=== PATIENT | female | born 1980 | race Caucasian/White ===

== ENCOUNTER → 2017-03-14 | Outpatient (CLI) | payer OTHER ==
[~2017-03-14] MED LIST: BCPILLS PO; LEVO75TA5 PO
[2017-03-14 17:05] LABS: URINE APPEARANCE CLEAR (CLEAR); URINE BILIRUBIN NEG (NEG); URINE COLOR YELLOW; URINE NITRITE NEG (NEG); URINE PH 5.5 (4.5-7.5); URINE SPECIFIC GRAVITY 1.023 (1.000-1.030); UROBILINOGEN NEG (NEG)
[2017-03-14 17:06] LABS: MANUAL MICROSCOPIC REQUIRED? NO; REVIEW REQ? NO
== END | disposition home or self-care (01) ==
LOC: C.LABSPEC 16:23
PROVIDERS: ATTEND Obstetrics & Gynecology
DX: N94.89 Other specified conditions associated with female genital organs and menstrual cycle (principal)

== ENCOUNTER → 2017-03-14 | Outpatient (CLI) | payer OTHER | END | disposition home or self-care (01) | LOC: C.PAPS 08:32 | PROVIDERS: ATTEND Obstetrics & Gynecology | DX: Z01.419 Encounter for gynecological examination (general) (routine) without abnormal findings (principal) ==

== ENCOUNTER → 2017-03-15 | Outpatient (CLI) | payer OTHER ==
[2017-03-15 12:16] LABS: BASO % 0.6 %; BASO ABS # 0.02 K/uL (0-0.2); COMPLETE YES; EOS % 2.1 %; HEMATOCRIT 43.9 % (37-47); LYMPH % 40.5 %; LYMPH ABS # 1.38 K/uL (1.2-3.4); MEAN CELL VOLUME 90.9 fL (80-100); MEAN CORPUSCULAR HEMOGLOBIN 29.6 pg (25-34); MEAN CORPUSCULAR HGB CONC 32.6 g/dl (32-36); MEAN PLATELET VOLUME 10.7 fL (7.4-10.4); MONO % 6.5 %; NEUT % 50.3 %; PLATELET COUNT 210 K/uL (130-400); RED BLOOD COUNT 4.83 M/uL (4.2-5.4); WHITE BLOOD COUNT 3.41 K/uL (4.8-10.8)
[2017-03-15 12:43] LABS: PREG INTERNAL NEGATIVE QC NEG CLEAR BACKGROUND; PREG INTERNAL POSITIVE QC POS CONTROL LINE
== END | disposition home or self-care (01) ==
LOC: C.LAB1850 11:24
PROVIDERS: ATTEND Obstetrics & Gynecology
DX: N94.89 Other specified conditions associated with female genital organs and menstrual cycle (principal)

== ENCOUNTER → 2017-05-16 | Outpatient (CLI) | payer OTHER ==
--- NOTE | 2017-05-16 11:38 | DIAGNOSTIC IMAGING REPORT ---
ABDOMINAL ULTRASOUND, RIGHT UPPER QUADRANT HISTORY: Abdominal bloating. COMPARISON: None. FINDINGS: The liver is sonographically normal. There is no biliary ductal dilatation. The common bile duct measures 2 mm in caliber. The pancreas is within normal limits by sonography. There is no right hydronephrosis. A few tiny suspected gallbladder polyps are present. These measure up to 2 mm. There are no shadowing gallstones. No gallbladder wall thickening is present. IMPRESSION: 1. A few tiny gallbladder polyps. 2. No gallstones or biliary ductal dilatation. Electronically signed by: Lester Santiago M.D. 05/16/2017 11:37 AM Dictated Date/Time: 05/16/2017 11:36 AM
== END | disposition home or self-care (01) ==
LOC: C.ULTR 10:56
PROVIDERS: ATTEND Obstetrics & Gynecology
DX: R14.0 Abdominal distension (gaseous) (principal)

== ENCOUNTER 2017-07-20 15:05 | Emergency (ER) | payer OTHER ==
[~2017-07-20] VITALS: Ht 160 cm; Wt 69.0 kg
[2017-07-20 15:16] VITALS: TEMP 36.8; Ht 160 cm; Wt 69.0 kg
--- NOTE | 2017-07-20 15:44 | EMERGENCY ROOM VISIT NOTE ---
History Report prepared by Luma: Leelee Barbour Under the Supervision of: Dr. Alcon Love M.D. First contact with patient: 15:37 Chief Complaint: ABDOMINAL PAIN Stated Complaint: CRAMPING/ABD PAIN Nursing Triage Summary: pt c/o lower bad pain for months getting worse last night History of Present Illness The patient is a 37 year old female who presents to the Emergency Room with complaints of worsening abdominal pain beginning in February. She reports that recently she has been having pain in both her abdomen and back that mirrors syndromes. The patient describes the pain as contractions and that the pain has been more frequent. She reports that she has been hunched over in pain last night and this morning. The patient denies nausea, vomiting, cough, fevers, chills, urinary symptoms, diarrhea, and constipation. The patient reports that laying on her back alleviates the pain. She states that she has been burping a lot and that she has been having indigestion lately. She also reports a 20 pound weight gain, which she states feels like a mass. Per her , the patient has had 2 ultrasounds and labs done. The patient reports still having normal menstrual cycles. Source of History: patient, spouse/significant other Onset: February Position: abdomen Timing: worsening Modifying Factors (Relieving): rest (laying on her back) Associated Symptoms: + back pain, No fevers, No chills, No cough, No nausea , No vomiting, No diarrhea, No urinary symptoms Note: additional symptoms: frequent burping and indigestion, 20 pound weight gain Review of Systems See HPI for pertinent positives and negatives. A total of ten systems were reviewed and were otherwise negative. Past Medical & Surgical Medical Problems: (1) No active medical problems Surgical Problems: (1) Previous section Family History No pertinent family history stated. Social History Smoking Status: Never Smoker Marital Status: Housing Status: lives with significant other Current/Historical Medications No Active Prescriptions or Reported Meds Allergies Coded Allergies: No Known Allergies (Unverified , 07/20/17) Physical Exam Vital Signs Date Time Temp Pulse Resp B/P (MAP) Pulse Ox O2 Delivery O2 Flow Rate FiO2 07/20/17 19:36 66 18 119/75 98 07/20/17 17:50 69 18 111/76 100 Room Air 07/20/17 16:47 64 07/20/17 16:00 66 20 104/65 96 Room Air 07/20/17 15:16 36.8 68 16 139/81 100 Room Air Physical Exam GENERAL: Awake, alert, well-appearing, in no distress HENT: Normocephalic, atraumatic. Oropharynx unremarkable. EYES: Normal conjunctiva. Sclera non-icteric. NECK: Supple. No nuchal rigidity. FROM. No JVD. RESPIRATORY: Clear to auscultation. CARDIAC: Regular rate, normal rhythm. Extremities warm and well perfused. Pulses equal. ABDOMEN: Soft, non-distended. No rebound or guarding. Moderate left and right adnexal tenderness to palpation. Moderate mild suprapubic tenderness to palpation. RECTAL: Deferred.. MUSCULOSKELETAL: Chest examination reveals no tenderness. The back is symmetrical on inspection without obvious abnormality. There is no CVA tenderness to palpation. No joint edema. LOWER EXTREMITIES: Calves are equal size bilaterally and non-tender. No edema. No discoloration. NEURO: Normal sensorium. No sensory or motor deficits noted. SKIN: No rash or jaundice noted. Medical Decision & Procedures ER Provider Diagnostic Interpretation: Radiology results as stated below per my review and radiologist interpretation: ABD/PELVIS IV CONTRAST ONLY CT DOSE: 444.09 mGycm HISTORY: Pain Lower abdominal pain TECHNIQUE: Multiaxial CT images of the abdomen and pelvis were performed following the use of intravenous contrast. A dose lowering technique was utilized adhering to the principles of ALARA. COMPARISON STUDY: None. FINDINGS: Lung bases are clear. Bilateral adrenal calcification considered nonacute. Liver is uniform. Pancreas is unremarkable. Kidneys enhance uniformly. The bowel pattern is nonobstructive. The appendix is normal. There is a 2.2 cm left ovarian cyst. There is a 1.5 cm right ovarian cyst. Uterus is anteflexed. There is trace amount of free fluid in the pelvic cul-de-sac most likely physiologic. Bladder is midline. IMPRESSION: 1. 2.2 cm left ovarian cyst. 2. 1.5 cm right ovarian cyst. 3. The abdomen and pelvis is otherwise negative. 4. Normal appendix. The above report was generated using voice recognition software. It may contain grammatical, syntax or spelling errors. Electronically signed by: Gabriel Simmons M.D. 07/20/2017 6:23 PM Dictated Date/Time: 07/20/2017 6:16 PM Laboratory Results 07/20/17 16:14 Red Blood Count 4.62, Mean Corpuscular Volume 89.2, Mean Corpuscular Hemoglobin 30.1, Mean Corpuscular Hemoglobin Concent 33.7, Mean Platelet Volume 10.9, Neutrophils (%) (Auto) 53.4, Lymphocytes (%) (Auto) 37.1, Monocytes (%) (Auto) 7.6, Eosinophils (%) (Auto) 1.7, Basophils (%) (Auto) 0.2, Neutrophils # (Auto) 2.17, Lymphocytes # (Auto) 1.51, Monocytes # (Auto) 0.31, Eosinophils # (Auto) 0.07, Basophils # (Auto) 0.01 07/20/17 16:14 Test 07/20/17 16:14 07/20/17 16:40 White Blood Count 4.07 K/uL (4.8-10.8) Red Blood Count 4.62 M/uL (4.2-5.4) Hemoglobin 13.9 g/dL (12.0-16.0) Hematocrit 41.2 % (37-47) Mean Corpuscular Volume 89.2 fL (80-100) Mean Corpuscular Hemoglobin 30.1 pg (25-34) Mean Corpuscular Hemoglobin Concent 33.7 g/dl (32-36) Platelet Count 175 K/uL (130-400) Mean Platelet Volume 10.9 fL (7.4-10.4) Neutrophils (%) (Auto) 53.4 % Lymphocytes (%) (Auto) 37.1 % Monocytes (%) (Auto) 7.6 % Eosinophils (%) (Auto) 1.7 % Basophils (%) (Auto) 0.2 % Neutrophils # (Auto) 2.17 K/uL (1.4-6.5) Lymphocytes # (Auto) 1.51 K/uL (1.2-3.4) Monocytes # (Auto) 0.31 K/uL (0.11-0.59) Eosinophils # (Auto) 0.07 K/uL (0-0.5) Basophils # (Auto) 0.01 K/uL (0-0.2) RDW Standard Deviation 39.7 fL (36.4-46.3) RDW Coefficient of Variation 12.4 % (11.5-14.5) Immature Granulocyte % (Auto) 0.0 % Immature Granulocyte # (Auto) 0.00 K/uL (0.00-0.02) Anion Gap 6.0 mmol/L (3-11) Est Creatinine Clear Calc Drug Dose 101.5 ml/min Estimated GFR () 127.4 Estimated GFR (Non- 109.9 BUN/Creatinine Ratio 20.5 (10-20) Calcium Level 8.7 mg/dl (8.5-10.1) Total Bilirubin 0.5 mg/dl (0.2-1) Direct Bilirubin 0.1 mg/dl (0-0.2) Aspartate Amino Transf (AST/SGOT) 23 U/L (15-37) Alanine Aminotransferase (ALT/SGPT) 28 U/L (12-78) Alkaline Phosphatase 61 U/L (45-117) Total Protein 7.0 gm/dl (6.4-8.2) Albumin 4.0 gm/dl (3.4-5.0) Lipase 108 U/L (73-393) Human Chorionic Gonadotropin, Qual NEG (NEG) Urine Color YELLOW Urine Appearance CLOUDY (CLEAR) Urine pH 6.5 (4.5-7.5) Urine Specific Collison 1.024 (1.000-1.030) Urine Protein NEG (NEG) Urine Glucose (UA) NEG (NEG) Urine Ketones NEG (NEG) Urine Occult Blood NEG (NEG) Urine Nitrite NEG (NEG) Urine Bilirubin NEG (NEG) Urine Urobilinogen NEG (NEG) Urine Leukocyte Esterase NEG (NEG) Urine WBC (Auto) 1-5 /hpf (0-5) Urine RBC (Auto) 0-4 /hpf (0-4) Urine Hyaline Casts (Auto) 1-5 /lpf (0-5) Urine Epithelial Cells (Auto) >30 /lpf (0-5) Urine Bacteria (Auto) 1+ (NEG) Urine Test NEG (NEG) Laboratory results reviewed by me Medications Administered Medications (Trade) Dose Ordered Sig/Mary Route Start Time Stop Time Status Last Admin Dose Admin Sodium Chloride 1,000 ml @ 999 mls/hr Q1H1M STAT IV 07/20/17 15:45 07/20/17 16:45 DC 07/20/17 15:45 999 MLS/HR ED Course 1535: The patient was evaluated in room C7. A complete history and physical exam was performed. 1545: Ordered Sodium Chloride 1,000 ml @ 999 mls/hr IV. 1899: I updated the patient on her results. 1919: I reevaluated the patient. Discussed results and discharge instructions: She verbalized understanding and agreement. The patient is ready for discharge. Medical Decision I reviewed the patient's past medical history, medications, and the nursing notes as described above. Differentials include: UTI, renal stone, endometriosis , chronic cystitis, , ectopic , diverticulitis, diverticulosis , appendicitis, ovarian torsion, and malignancy. Patient is a 37-year-old woman who presents emergency department with several months of lower abdominal pain and fullness per history of present illness. Around the patient is afebrile, is unstable, in no acute distress. Exam the patient has mild lower abdominal fullness with tenderness to palpation in bilateral adnexa and mild suprapubic tenderness to palpation. Abdomen unremarkable. Option given to the patient for repeat pelvic ultrasound given symptoms could be consistent with endometriosis. However, given that the patient has had 2 prior pelvic ultrasounds without any identified etiology in the setting of these symptoms prefers CT. CT scan of the abdomen and pelvis demonstrates only bilateral ovarian cysts but otherwise no emergent process. Findings reviewed with patient. I explained how in the setting of a female pelvic pain both pelvic exam and transvaginal ultrasound are indicated. However given she has had prior exams and ultrasounds that were unremarkable deferring these tests would be reasonable. Patient agrees and prefers to follow -up with her multineedle shirrer for further evaluation. Findings and plan for follow- up d/w patient. Patient agreeable and d/c'd per discharge instructions. Medication Reconcilliation Current Medication List: was personally reviewed by me Blood Pressure Screening Patient's blood pressure: Normal blood pressure Impression Primary Impression: Abdominal pain Additional Impression: Ovarian cyst Scribe Attestation The scribe's documentation has been prepared under my direction and personally reviewed by me in its entirety. I confirm that the note above accurately reflects all work, treatment, procedures, and medical decision making performed by me. Departure Information Dispostion Home / Self-Care Prescriptions No Active Prescriptions or Reported Meds Referrals Leonel Hill M.D. (PCP) Forms Call Back Authorization, HOME CARE DOCUMENTATION FORM, IMPORTANT VISIT INFORMATION Patient Instructions ED Cyst Ovarian, My [facility] Additional Instructions Please follow up with your multineedle shirrer in the next 1-3 days for re-evaluation. Your CT scan showed ovarian cysts. Otherwise, your exam, CT scan, and lab results did not show signs of an emergent condition at this time. Return to the emergency department for worsening symptoms as described in the accompanying instructions. ABD/PELVIS IV CONTRAST ONLY CT DOSE: 444.09 mGycm HISTORY: Pain Lower abdominal pain TECHNIQUE: Multiaxial CT images of the abdomen and pelvis were performed following the use of intravenous contrast. A dose lowering technique was utilized adhering to the principles of ALARA. COMPARISON STUDY: None. FINDINGS: Lung bases are clear. Bilateral adrenal calcification considered nonacute. Liver is uniform. Pancreas is unremarkable. Kidneys enhance uniformly. The bowel pattern is nonobstructive. The appendix is normal. There is a 2.2 cm left ovarian cyst. There is a 1.5 cm right ovarian cyst. Uterus is anteflexed. There is trace amount of free fluid in the pelvic cul-de-sac most likely physiologic. Bladder is midline. IMPRESSION: 1. 2.2 cm left ovarian cyst. 2. 1.5 cm right ovarian cyst. 3. The abdomen and pelvis is otherwise negative. 4. Normal appendix. Problem Qualifiers
[2017-07-20] MEDS ORDERED: SODIUM CHLORIDE 0.9% 1000ML 1,000 ML IV STA (15:45)
[2017-07-20] MEDS ORDERED: OPTIRAY 320 IV PRN (16:00)
[2017-07-20 16:26] LABS: BASO % 0.2 %; BASO ABS # 0.01 K/uL (0-0.2); COMPLETE YES; EOS % 1.7 %; HEMATOCRIT 41.2 % (37-47); LYMPH % 37.1 %; LYMPH ABS # 1.51 K/uL (1.2-3.4); MEAN CELL VOLUME 89.2 fL (80-100); MEAN CORPUSCULAR HEMOGLOBIN 30.1 pg (25-34); MEAN CORPUSCULAR HGB CONC 33.7 g/dl (32-36); MEAN PLATELET VOLUME 10.9 fL (7.4-10.4); MONO % 7.6 %; NEUT % 53.4 %; PLATELET COUNT 175 K/uL (130-400); RED BLOOD COUNT 4.62 M/uL (4.2-5.4); WHITE BLOOD COUNT 4.07 K/uL (4.8-10.8)
[2017-07-20 16:49] LABS: BUN/CREATININE RATIO 20.5 (10-20); CALCIUM 8.7 mg/dl (8.5-10.1); CREATININE 0.7 mg/dl (0.60-1.20); POTASSIUM 3.7 mmol/L (3.5-5.1)
[2017-07-20 16:50] LABS: PREG INTERNAL NEGATIVE QC NEG CLEAR BACKGROUND; PREG INTERNAL POSITIVE QC POS CONTROL LINE
[2017-07-20 17:14] LABS: URINE APPEARANCE CLOUDY (CLEAR); URINE BILIRUBIN NEG (NEG); URINE COLOR YELLOW; URINE EPITHELIAL CELL AUTO >30 /lpf (0-5); URINE NITRITE NEG (NEG); URINE PH 6.5 (4.5-7.5); URINE SPECIFIC GRAVITY 1.024 (1.000-1.030); UROBILINOGEN NEG (NEG)
[2017-07-20 17:16] LABS: MANUAL MICROSCOPIC REQUIRED? NO; REVIEW REQ? NO
--- NOTE | 2017-07-20 18:24 | DIAGNOSTIC IMAGING REPORT ---
ABD/PELVIS IV CONTRAST ONLY CT DOSE: 444.09 mGycm HISTORY: Pain Lower abdominal pain TECHNIQUE: Multiaxial CT images of the abdomen and pelvis were performed following the use of intravenous contrast. A dose lowering technique was utilized adhering to the principles of ALARA. COMPARISON STUDY: None. FINDINGS: Lung bases are clear. Bilateral adrenal calcification considered nonacute. Liver is uniform. Pancreas is unremarkable. Kidneys enhance uniformly. The bowel pattern is nonobstructive. The appendix is normal. There is a 2.2 cm left ovarian cyst. There is a 1.5 cm right ovarian cyst. Uterus is anteflexed. There is trace amount of free fluid in the pelvic cul-de-sac most likely physiologic. Bladder is midline. IMPRESSION: 1. 2.2 cm left ovarian cyst. 2. 1.5 cm right ovarian cyst. 3. The abdomen and pelvis is otherwise negative. 4. Normal appendix. The above report was generated using voice recognition software. It may contain grammatical, syntax or spelling errors. Electronically signed by: Gabriel Simmons M.D. 07/20/2017 6:23 PM Dictated Date/Time: 07/20/2017 6:16 PM
[2017-07-20 19:36] VITALS: BP 119/75; PULSE 66; O2SAT 98
== END 2017-07-20 19:37 | disposition home or self-care (01) ==
LOC: C.EDB 15:06 → C.EDC 19:37
DX: R10.9 Unspecified abdominal pain (principal); N83.201 Unspecified ovarian cyst, right side; N83.202 Unspecified ovarian cyst, left side

== ENCOUNTER → 2017-07-28 | Outpatient (CLI) | payer OTHER ==
[2017-07-28 17:20] LABS: THYROID STIMULATING HORMONE 2.96 uIu/ml (0.300-4.500)
== END | disposition home or self-care (01) ==
LOC: C.LABBFT 15:50
PROVIDERS: ATTEND Internal Medicine
DX: R63.5 Abnormal weight gain (principal)

== ENCOUNTER → 2017-09-06 | Outpatient (CLI) | payer OTHER ==
[2017-09-06 12:51] LABS: THYROID STIMULATING HORMONE 0.439 uIu/ml (0.300-4.500)
== END | disposition home or self-care (01) ==
LOC: C.LABBFT 09:08
PROVIDERS: ATTEND Internal Medicine
DX: E03.9 Hypothyroidism, unspecified (principal)

== ENCOUNTER 2017-09-27 18:47 | Emergency (ER) | payer OTHER ==
[~2017-09-27] VITALS: Ht 160 cm; Wt 70.2 kg
[2017-09-27 18:54] VITALS: TEMP 36.3; Ht 160 cm; Wt 70.2 kg
[2017-09-27] MEDS ORDERED: KETOROLAC TROMETHAMINE 30 MG/ML VIAL IV STA (19:20)
[2017-09-27] MEDS ORDERED: ONDANSETRON INJ 2 MG/ML 2 ML VIAL IV STA (19:20)
[2017-09-27] MEDS ORDERED: LEVO75TA5 PO (19:40)
[2017-09-27] MEDS ORDERED: BCPILLS PO (19:40)
[2017-09-27 19:45] LABS: BASO % 0.5 %; BASO ABS # 0.02 K/uL (0-0.2); COMPLETE YES; EOS % 1.7 %; HEMATOCRIT 39.5 % (37-47); LYMPH % 44.8 %; LYMPH ABS # 1.89 K/uL (1.2-3.4); MEAN CORPUSCULAR HEMOGLOBIN 31.1 pg (25-34); MEAN CORPUSCULAR HGB CONC 34.2 g/dl (32-36); MEAN PLATELET VOLUME 10.8 fL (7.4-10.4); MONO % 6.6 %; NEUT % 46.4 %; PLATELET COUNT 167 K/uL (130-400); RED BLOOD COUNT 4.34 M/uL (4.2-5.4); WHITE BLOOD COUNT 4.22 K/uL (4.8-10.8)
--- NOTE | 2017-09-27 19:55 | DIAGNOSTIC IMAGING REPORT ---
CT SCAN OF THE BRAIN WITHOUT IV CONTRAST CLINICAL HISTORY: Headache. COMPARISON STUDY: No priors. TECHNIQUE: Unenhanced axial CT scan of the brain is performed from the vertex to the skull base. A dose lowering technique was utilized adhering to the principles of ALARA. CT DOSE: 537.48 mGy.cm FINDINGS: Brain parenchyma: The brain parenchyma is normal in appearance. There is no hemorrhage, mass effect, or evidence of acute territorial ischemia by CT criteria. Muro-white matter is preserved. No extra-axial fluid collection is seen. Ventricles, sulci, cisterns: Normal in configuration. Intracranial vasculature: The visualized intracranial vasculature at the skull base is normal in appearance. Calvarium: Unremarkable. Sinuses and mastoids: The visualized paranasal sinuses are clear. The mastoid air cells are well pneumatized. Orbits: The bony orbits are grossly intact. IMPRESSION: No acute intracranial abnormality. Electronically signed by: Jerel Yost M.D. 09/27/2017 7:54 PM Dictated Date/Time: 09/27/2017 7:52 PM
[2017-09-27 20:02] LABS: BUN/CREATININE RATIO 14.2 (10-20); CALCIUM 8.7 mg/dl (8.5-10.1); CREATININE 0.84 mg/dl (0.60-1.20); POTASSIUM 3.6 mmol/L (3.5-5.1)
[2017-09-27 20:21] VITALS: BP 110/80; PULSE 71; O2SAT 98
--- NOTE | 2017-09-27 20:33 | EMERGENCY ROOM VISIT NOTE ---
History Report prepared by Luma: Nishi Alba Under the Supervision of: Dr. aMrco A Menendez M.D. First contact with patient: 19:04 Chief Complaint: BACK PAIN Stated Complaint: HEADACHE,ABD PAIN History of Present Illness The patient is a 37 year old female who presents to the Emergency Room with complaints of constant left side headache for three days SOLE SKIVER. She notes the headache is severe and causing her to break out into a sweat. She notes the pain is throbbing behind her eyes. She currently rates her pain an 8/10 in severity. She notes that she has been having contractions in her back and lower abdomen for the last nine months. She describes the contractions like "labor contractions" mostly in her lumbar region near the coccyx. She notes that she gets numbness in her legs when her back contracts, which she describes is new in the last two days. She has seen a tool maker and her PCP, though they have not been able to determine the cause of her pain. She is taking Synthroid and recently started taking control pills. She notes her tool maker instructed her to skip her menstrual cycle with the control pills this month. She notes some weight gain in the last month. She notes that she has chills and describes her body temperature is fluctuating from increased warmth to coolness. She denies recent any , fevers, congestion, trauma, cough , urinary symptoms, bloody stools, chest pain, shortness of breath, neck pain, leg pain, leg swelling, or tick bites. She has a history of hypothyroidism, two caesarean sections, breast augmentation, and wisdom tooth extraction. Source of History: patient, spouse/significant other Onset: three days SOLE SKIVER Position: head Symptom Intensity: 8/10 Quality: other (throbbing) Timing: constant Associated Symptoms: + chills (fluctuating in increased warmth and coolness) , + headache, + diaphoresis, + abdominal pain (lower ), + back pain (lumbar region near coccyx), + numbness (in her legs with back contractions), No fevers , No cough, No chest pain, No SOB, No urinary symptoms Note: She notes some recent weight gain. She denies any recent , congestion, trauma, bloody stools, neck pain, leg pain, leg swelling, or tick bites. Review of Systems See HPI for pertinent positives & negatives. A total of 10 systems reviewed and were otherwise negative. Past Medical & Surgical Medical Problems: (1) Hypothyroid (2) No active medical problems Surgical Problems: (1) Previous section (2) Previous section Old medical records were reviewed. Nurse's notes were reviewed and I agree with. Family History Hypertension Social History Smoking Status: Never Smoker Smokeless Tobacco Use: No Alcohol Use: none Drug Use: none Marital Status: Housing Status: lives with significant other Occupation Status: unemployed Current/Historical Medications Scheduled Control Pills ( Control Pills), 1 TAB PO DAILY Levothyroxine Sodium (Levothyroxine Sodium), 1 TAB PO DAILY Allergies Coded Allergies: No Known Allergies (Unverified , 09/27/17) Physical Exam Vital Signs Date Time Temp Pulse Resp B/P (MAP) Pulse Ox O2 Delivery O2 Flow Rate FiO2 09/27/17 20:21 71 16 110/80 98 09/27/17 18:54 36.3 63 18 145/80 97 Room Air Physical Exam General: Non-ill appearing middle-aged female in no acute distress. HEENT: Normal cephalic atraumatic. Pupils are equal round and reactive to light. Sclerae anicteric. No photophobia. Extraocular movements are intact. Oropharynx is pink with moist mucous membranes. No swelling of the mouth lips or tongue. Normal TMs. Neck: Supple with a midline trachea. No meningeal signs or stiffness, no JVD or bruits. No Stridor. Chest: Clear to auscultation bilaterally. No wheezes or rhonchi. No increased work of breathing. Heart: regular rate and rhythm. Abdomen: Soft nontender, nondistended without rebound guarding or rigidity. Extremities: No cyanosis clubbing or edema. No calf tenderness or assymetry Spine/Back. Non tender to palpation. No CVA tenderness Skin: Good turgor without rashes. Neurologic exam: Cranial nerves two through 12 are intact. Motor and sensation are intact and symmetrical throughout. Medical Decision & Procedures ER Provider Diagnostic Interpretation: Radiology results as stated below per my review and radiologist interpretation: CT SCAN OF THE BRAIN WITHOUT IV CONTRAST CLINICAL HISTORY: Headache. COMPARISON STUDY: No priors. TECHNIQUE: Unenhanced axial CT scan of the brain is performed from the vertex to the skull base. A dose lowering technique was utilized adhering to the principles of ALARA. CT DOSE: 537.48 mGy.cm FINDINGS: Brain parenchyma: The brain parenchyma is normal in appearance. There is no hemorrhage, mass effect, or evidence of acute territorial ischemia by CT criteria. Muro-white matter is preserved. No extra-axial fluid collection is seen. Ventricles, sulci, cisterns: Normal in configuration. Intracranial vasculature: The visualized intracranial vasculature at the skull base is normal in appearance. Calvarium: Unremarkable. Sinuses and mastoids: The visualized paranasal sinuses are clear. The mastoid air cells are well pneumatized. Orbits: The bony orbits are grossly intact. IMPRESSION: No acute intracranial abnormality. Electronically signed by: Jerel Yost M.D. 09/27/2017 7:54 PM Dictated Date/Time: 09/27/2017 7:52 PM Laboratory Results 09/27/17 19:30 Red Blood Count 4.34, Mean Corpuscular Volume 91.0, Mean Corpuscular Hemoglobin 31.1, Mean Corpuscular Hemoglobin Concent 34.2, Mean Platelet Volume 10.8, Neutrophils (%) (Auto) 46.4, Lymphocytes (%) (Auto) 44.8, Monocytes (%) (Auto) 6.6, Eosinophils (%) (Auto) 1.7, Basophils (%) (Auto) 0.5, Neutrophils # (Auto) 1.96, Lymphocytes # (Auto) 1.89, Monocytes # (Auto) 0.28, Eosinophils # (Auto) 0.07, Basophils # (Auto) 0.02 09/27/17 19:30 Test 09/27/17 19:30 White Blood Count 4.22 K/uL (4.8-10.8) Red Blood Count 4.34 M/uL (4.2-5.4) Hemoglobin 13.5 g/dL (12.0-16.0) Hematocrit 39.5 % (37-47) Mean Corpuscular Volume 91.0 fL (80-100) Mean Corpuscular Hemoglobin 31.1 pg (25-34) Mean Corpuscular Hemoglobin Concent 34.2 g/dl (32-36) Platelet Count 167 K/uL (130-400) Mean Platelet Volume 10.8 fL (7.4-10.4) Neutrophils (%) (Auto) 46.4 % Lymphocytes (%) (Auto) 44.8 % Monocytes (%) (Auto) 6.6 % Eosinophils (%) (Auto) 1.7 % Basophils (%) (Auto) 0.5 % Neutrophils # (Auto) 1.96 K/uL (1.4-6.5) Lymphocytes # (Auto) 1.89 K/uL (1.2-3.4) Monocytes # (Auto) 0.28 K/uL (0.11-0.59) Eosinophils # (Auto) 0.07 K/uL (0-0.5) Basophils # (Auto) 0.02 K/uL (0-0.2) RDW Standard Deviation 42.2 fL (36.4-46.3) RDW Coefficient of Variation 12.7 % (11.5-14.5) Immature Granulocyte % (Auto) 0.0 % Immature Granulocyte # (Auto) 0.00 K/uL (0.00-0.02) Erythrocyte Sedimentation Rate 2 mm/hr (0-21) Anion Gap 5.0 mmol/L (3-11) Est Creatinine Clear Calc Drug Dose 85.3 ml/min Estimated GFR () 102.2 Estimated GFR (Non- 88.2 BUN/Creatinine Ratio 14.2 (10-20) Calcium Level 8.7 mg/dl (8.5-10.1) Total Bilirubin 0.4 mg/dl (0.2-1) Direct Bilirubin 0.1 mg/dl (0-0.2) Aspartate Amino Transf (AST/SGOT) 22 U/L (15-37) Alanine Aminotransferase (ALT/SGPT) 19 U/L (12-78) Alkaline Phosphatase 48 U/L (45-117) Total Protein 7.0 gm/dl (6.4-8.2) Albumin 3.8 gm/dl (3.4-5.0) Lipase 115 U/L (73-393) Human Chorionic Gonadotropin, Qual NEG (NEG) Lyme Disease IgG Antibody NEG (NEG) Lyme Disease IgM Antibody NEG (NEG) Laboratory studies as stated above per my review. Medications Administered Medications (Trade) Dose Ordered Sig/Mary Route Start Time Stop Time Status Last Admin Dose Admin Ketorolac Tromethamine (Toradol Inj) 30 mg NOW STAT IV 09/27/17 19:20 09/27/17 19:24 DC 09/27/17 19:36 30 MG Ondansetron HCl (Zofran Inj) 4 mg NOW STAT IV 09/27/17 19:20 09/27/17 19:24 DC 09/27/17 19:36 4 MG ED Course 1904: Past medical records reviewed. The patient was evaluated in room A11B, and a complete history and physical examination were performed. 1919: Ordered Zofran 4 mg IV, Toradol 30 mg IV 1944: I reassessed the patient at this time. She is feeling better and resting comfortably. 2010: I reassessed the patient at this time. She is feeling better and resting comfortably. I discussed the results and treatment plan with the patient. I answered all pertaining questions that she had. She expressed understanding and verbalized agreement. The patient will be discharged home. Medical Decision Differentials include, but are not limited to; migraine, tension headache, Lyme disease, electrolyte or metabolic abnormality, and infection. This patient comes in as described above. She was placed in room A 11. She comes in complaining of a headache mostly on her left side. This is gotten increasingly worse today. She's had no fever or chills. She's had nothing to suggest meningitis or encephalitis. She has a normal neurologic exam. She has had some chronic abdominal issues that has been evaluated by her tool maker and multiple imaging. They have changed her oral contraceptives and is possible this could have triggered a headache. I did a CAT scan of her head and there are no acute intracranial findings. IV access established. She was given Toradol 30 mg IV and her headache completely resolved. She has no white count or fever to suggest infection. Sedimentation rate is also within normal limits and does not suggest an inflammatory infectious process. Her Lyme titer was negative. Her test was negative. She's had no acute electrolyte or metabolic abnormalities. She feels significant better and would like to go home. In regards to her headache, at this point there is nothing to suggest meningitis, aneurysm or other serious causes for her headache. She does have ongoing issues with her abdominal pain and she may need further workup for this to rule out endometriosis among other potential etiologies. She feels good and would like to go home. I will discharge her to home. She should rest and drink plenty of fluids. She should Return if: headaches worsen in anyway, fever or chills, numbness or weakness, any new problems or concerns. The patient has were happy the plan and she was discharged to home and encouraged to follow-up with her doctor this week for recheck. Medication Reconcilliation Current Medication List: was personally reviewed by me Blood Pressure Screening Patient's blood pressure: Normal blood pressure Impression Primary Impression: Headache Scribe Attestation The scribe's documentation has been prepared under my direction and personally reviewed by me in its entirety. I confirm that the note above accurately reflects all work, treatment, procedures, and medical decision making performed by me. Departure Information Dispostion Home / Self-Care Referrals Leonel Hill M.D. (PCP) Forms HOME CARE DOCUMENTATION FORM, IMPORTANT VISIT INFORMATION Patient Instructions My [facility] Additional Instructions Rest Drink plenty of fluids Return if : worsening of symptoms, increasing pain, fever, any new problems or concerns Follow-up with your doctor this week for recheck
[2017-09-27 20:35] LABS: PREG INTERNAL NEGATIVE QC NEG CLEAR BACKGROUND; PREG INTERNAL POSITIVE QC POS CONTROL LINE
[2017-09-27 21:04] LABS: LYME DISEASE AB IGG NEG (NEG); LYME DISEASE AB IGM NEG (NEG)
== END 2017-09-27 20:22 | disposition home or self-care (01) ==
LOC: C.EDB 18:48 → C.EDA 20:22
DX: R51 Headache (principal); E03.9 Hypothyroidism, unspecified; Z79.899 Other long term (current) drug therapy; Z82.49 Family history of ischemic heart disease and other diseases of the circulatory system

== ENCOUNTER 2017-10-15 21:46 | Emergency (ER) | payer OTHER ==
[~2017-10-15] VITALS: Ht 160 cm; Wt 71.5 kg
[2017-10-15 21:49] VITALS: Ht 160 cm; Wt 71.5 kg
[2017-10-15] MEDS ORDERED: ONDANSETRON INJ 2 MG/ML 2 ML VIAL IV STA (22:02)
[2017-10-15] MEDS ORDERED: KETOROLAC TROMETHAMINE 30 MG/ML VIAL IV STA (22:02)
--- NOTE | 2017-10-15 22:17 | EMERGENCY ROOM VISIT NOTE ---
ED Visit Note First contact with patient: 21:52 The patient was seen and examined with Khloe Espinosa PA-C. I agree with the history, physical and findings. Please see the note for disposition and details.
[2017-10-15] MEDS ORDERED: IBUP-1050 PO (22:32)
[2017-10-15 22:37] LABS: BASO % 0.6 %; BASO ABS # 0.03 K/uL (0-0.2); COMPLETE YES; EOS % 2.4 %; IG% 0.2 %; LYMPH % 45.6 %; LYMPH ABS # 2.13 K/uL (1.2-3.4); MEAN CELL VOLUME 89.5 fL (80-100); MEAN CORPUSCULAR HEMOGLOBIN 30.8 pg (25-34); MEAN CORPUSCULAR HGB CONC 34.4 g/dl (32-36); MEAN PLATELET VOLUME 11.1 fL (7.4-10.4); MONO % 7.1 %; NEUT % 44.1 %; PLATELET COUNT 183 K/uL (130-400); RED BLOOD COUNT 4.58 M/uL (4.2-5.4); WHITE BLOOD COUNT 4.67 K/uL (4.8-10.8)
[2017-10-15 22:37] LABS: URINE APPEARANCE CLEAR (CLEAR); URINE BILIRUBIN NEG (NEG); URINE COLOR YELLOW; URINE NITRITE NEG (NEG); URINE SPECIFIC GRAVITY 1.017 (1.000-1.030); UROBILINOGEN NEG (NEG); ZZUR CULT IF INDIC CLEAN CATCH NO
[2017-10-15 22:42] LABS: MANUAL MICROSCOPIC REQUIRED? NO; REVIEW REQ? NO
[2017-10-15 22:52] LABS: PREG INTERNAL NEGATIVE QC NEG CLEAR BACKGROUND; PREG INTERNAL POSITIVE QC POS CONTROL LINE
[2017-10-15 22:54] LABS: BUN/CREATININE RATIO 19.5 (10-20); CALCIUM 9.1 mg/dl (8.5-10.1); CREATININE 0.88 mg/dl (0.60-1.20); POTASSIUM 3.7 mmol/L (3.5-5.1)
[2017-10-15 23:04] LABS: THYROID STIMULATING HORMONE 0.957 uIu/ml (0.300-4.500)
[2017-10-15] MEDS ORDERED: KETOROLAC TROMETHAMINE 10 MG TAB PO STA (23:38)
[2017-10-15] MEDS ORDERED: EMPTY 8 DRAM VIAL ONE (23:46)
[2017-10-15] MEDS ORDERED: KETO10TA PO (23:53)
[2017-10-15] MEDS ORDERED: ONDA4TAB10 SL (23:56)
[2017-10-16] MEDS ORDERED: ONDANSETRON HOME PACK 4MG OD TAB PO ONE
[2017-10-16] MEDS ORDERED: KETOROLAC TROMETHAMINE 60 MG/2 ML VIAL IM ONE
[2017-10-16 00:11] VITALS: BP 123/65; PULSE 72; O2SAT 96
--- NOTE | 2017-10-16 00:12 | EMERGENCY ROOM VISIT NOTE ---
History First contact with patient: 21:52 Chief Complaint: BACK PAIN Stated Complaint: PELVIC/BACK PAIN History of Present Illness The patient is a 37 year old female who presents to the Emergency Room with complaints of ongoing pelvic pain for the past 8 months that comes and goes in severity is currently seen by keke [facility]ers OB for this. Patient has a scheduled MRI next week. She is currently on control and this does not seem to be helping. Pain currently 8 out of 10 that comes and goes in severity and nothing makes it better or worse. It does not radiate. Described as cramping. Patient is in a monogamous relationship. . She has had 2 cesareans. No history of endometriosis. Patient denies chest pain, dyspnea, fever, chills, vomiting, diarrhea, urinary symptoms, . She is tolerate by mouth fluids and food. She's been having some light spotting but nothing overtly concerning. Review of Systems See HPI for pertinent positives & negatives. A total of 10 systems reviewed and were otherwise negative. Past Medical/Surgical History Medical Problems: (1) Hypothyroid (2) No active medical problems Surgical Problems: (1) Previous section (2) Previous section Family History Hypertension Social History Smoking Status: Never Smoker Alcohol Use: none Drug Use: none Marital Status: Housing Status: lives with significant other Occupation Status: unemployed Current/Historical Medications Scheduled Control Pills ( Control Pills), 1 TAB PO DAILY Ibuprofen (Advil), 800 MG PO PRN Ketorolac Tromethamine (Toradol), 10 MG PO Q6 Levothyroxine Sodium (Levothyroxine Sodium), 75 MCG PO DAILY Ondasetron Odt (Zofran Odt), 4 MG SL Q6H Physical Exam Vital Signs Date Time Temp Pulse Resp B/P (MAP) Pulse Ox O2 Delivery O2 Flow Rate FiO2 10/15/17 21:49 36.7 78 18 144/79 96 Room Air Physical Exam VITALS: Vitals are noted on the nurse's note and reviewed by myself. Vital signs stable. GENERAL: Pleasant female, in no acute distress, nondiaphoretic, well-developed well-nourished. SKIN: Capillary reflex less than 2 seconds. HEENT: Normocephalic. PERRLA. EOMI. Nares patent. Mucous membranes moist. Neck is supple without nuchal rigidity. HEART: Regular rate and rhythm without murmurs gallops or rubs. LUNGS: Clear to auscultation bilaterally without wheezes, rales or rhonchi. No retractions or accessory muscle use. ABDOMEN: Positive bowel sounds x 4. Normal tympanic percussion. Soft, tender to palpation suprapubic area, no CVA tenderness, without masses or organomegaly. Nelson sign negative. No guarding or rebound tenderness. MUSCULOSKELETAL: No gross musculoskeletal defects. NEURO: Patient was alert and oriented to person place and time. Normal sensation to light and sharp touch. No focal neurological deficits. Medical Decision & Procedures Laboratory Results 10/15/17 22:20 Red Blood Count 4.58, Mean Corpuscular Volume 89.5, Mean Corpuscular Hemoglobin 30.8, Mean Corpuscular Hemoglobin Concent 34.4, Mean Platelet Volume 11.1, Neutrophils (%) (Auto) 44.1, Lymphocytes (%) (Auto) 45.6, Monocytes (%) (Auto) 7.1, Eosinophils (%) (Auto) 2.4, Basophils (%) (Auto) 0.6, Neutrophils # (Auto) 2.06, Lymphocytes # (Auto) 2.13, Monocytes # (Auto) 0.33, Eosinophils # (Auto) 0.11, Basophils # (Auto) 0.03 10/15/17 22:20 Test 10/15/17 22:10 10/15/17 22:20 Urine Color YELLOW Urine Appearance CLEAR (CLEAR) Urine pH 7.0 (4.5-7.5) Urine Specific Capulin 1.017 (1.000-1.030) Urine Protein NEG (NEG) Urine Glucose (UA) NEG (NEG) Urine Ketones NEG (NEG) Urine Occult Blood TRACE (NEG) Urine Nitrite NEG (NEG) Urine Bilirubin NEG (NEG) Urine Urobilinogen NEG (NEG) Urine Leukocyte Esterase TRACE (NEG) Urine WBC (Auto) 1-5 /hpf (0-5) Urine RBC (Auto) 0-4 /hpf (0-4) Urine Hyaline Casts (Auto) 1-5 /lpf (0-5) Urine Epithelial Cells (Auto) 10-20 /lpf (0-5) Urine Bacteria (Auto) NEG (NEG) White Blood Count 4.67 K/uL (4.8-10.8) Red Blood Count 4.58 M/uL (4.2-5.4) Hemoglobin 14.1 g/dL (12.0-16.0) Hematocrit 41.0 % (37-47) Mean Corpuscular Volume 89.5 fL (80-100) Mean Corpuscular Hemoglobin 30.8 pg (25-34) Mean Corpuscular Hemoglobin Concent 34.4 g/dl (32-36) Platelet Count 183 K/uL (130-400) Mean Platelet Volume 11.1 fL (7.4-10.4) Neutrophils (%) (Auto) 44.1 % Lymphocytes (%) (Auto) 45.6 % Monocytes (%) (Auto) 7.1 % Eosinophils (%) (Auto) 2.4 % Basophils (%) (Auto) 0.6 % Neutrophils # (Auto) 2.06 K/uL (1.4-6.5) Lymphocytes # (Auto) 2.13 K/uL (1.2-3.4) Monocytes # (Auto) 0.33 K/uL (0.11-0.59) Eosinophils # (Auto) 0.11 K/uL (0-0.5) Basophils # (Auto) 0.03 K/uL (0-0.2) RDW Standard Deviation 40.0 fL (36.4-46.3) RDW Coefficient of Variation 12.3 % (11.5-14.5) Immature Granulocyte % (Auto) 0.2 % Immature Granulocyte # (Auto) 0.01 K/uL (0.00-0.02) Anion Gap 7.0 mmol/L (3-11) Est Creatinine Clear Calc Drug Dose 82.1 ml/min Estimated GFR () 96.6 Estimated GFR (Non- 83.3 BUN/Creatinine Ratio 19.5 (10-20) Calcium Level 9.1 mg/dl (8.5-10.1) Thyroid Stimulating Hormone (TSH) 0.957 uIu/ml (0.300-4.500) Human Chorionic Gonadotropin, Qual NEG (NEG) Medications Administered Medications (Trade) Dose Ordered Sig/Mary Route Start Time Stop Time Status Last Admin Dose Admin Ketorolac Tromethamine (Toradol Inj) 30 mg NOW STAT IV 10/15/17 22:02 10/15/17 22:04 DC 10/15/17 22:23 30 MG Ondansetron HCl (Zofran Inj) 4 mg NOW STAT IV 10/15/17 22:02 10/15/17 22:04 DC 10/15/17 22:20 4 MG Ketorolac Tromethamine (Toradol Tab) 40 mg NOW STAT PO 10/15/17 23:38 10/15/17 23:44 DC 10/15/17 23:59 40 MG Ketorolac Tromethamine (Toradol Inj) 120 mg NOW ONCE IM 10/16/17 00:00 10/16/17 00:01 DC 10/16/17 00:00 120 MG ED Course Prior records/ancillary studies reviewed. Triage Nursing notes reviewed. Additional history obtained from who is a general surgeon at this hospital The patient's history was concerning for suprapubic abdominal pain. Differential diagnosis: Differential diagnosis includes pelvic congestion syndrome, adhesions, salpingitis, , ectopic , incomplete , septic , ruptured ovarian cyst, ovarian torsion, Mittelschmerz, endometritis, dysmenorrhea, appendicitis, PID, and others. Physical examination findings: As above. ER treatment provided: Toradol, Zofran On reassessment the patient felt better. Diagnostics interpreted by me: The labs revealed negative hCG. No worrisome leukocytosis Imaging studies: Ultrasound was read by stat radiology with endometrium measuring 4 mm. Blood flow to both ovaries. Exam and history seem consistent with ongoing acute on chronic pelvic pain. This could be pelvic congestion syndrome or adhesions or endometriosis. Patient has a MRI scheduled for next week. She follows up with OB this week and is advised to keep this appointment. Her is a surgeon as facility. He feels comfortable giving IM Toradol and I felt this is a reasonable option instead of coming to the ER for Toradol injections. They're advised not to use oral Toradol more than 5 days in a row for the tablets and not to use more than one shot a day. She is advised to eat with this medication. She was advised not to take any other anti-inflammatories with this medication. Patient did not have acute abdomen on exam. She is well-appearing. She felt much better after being medicated as above. No leukocytosis. Stable H&H. She was not . She is advised to return to the ER immediately for abdominal pain, fevers, vomiting, worsening signs or symptoms or as needed. By the evaluation outlined above emergent etiologies such as salpingitis, , ectopic , incomplete , septic , ruptured ovarian cyst, ovarian torsion, Mittelschmerz, endometritis, dysmenorrhea, appendicitis, PID, as well as others were deemed relatively unlikely. The pt informed about the findings as listed above. All questions were answered and pleased with the treatment. Return instructions were outlined and the patient was discharged in stable condition. Outpatient prescription management: Toradol Referral: The patient was referred back to their ELECTRICAL CONTROLS TECHNICIAN for follow-up in 2 to 3 days for a recheck of the current condition. Case reviewed with my attending The chart was completed utilizing [employer] Speech voice recognition software. Grammatical errors, random word insertions, pronoun errors, and incomplete sentences are an occassional consequence of this system due to software limitations, ambient noise, and hardware issues. Any formal questions or concerns about the content, text, or information contained within the body of this dictation should be directly addressed to the physician hospital nursing assistant for clarification. Medical Decision As above Medication Reconcilliation Current Medication List: was personally reviewed by me Blood Pressure Screening Patient's blood pressure: Normal blood pressure Impression Primary Impression: Pelvic pain Departure Information Prescriptions Ondasetron Odt (ZOFRAN ODT) 4 Mg Tab 4 MG SL Q6H, #10 TAB Prov: Kendra Espinosa PA-C 10/15/17 Ketorolac Tromethamine (TORADOL) 10 Mg Tab 10 MG PO Q6, #10 TAB Prov: Kendra Espinosa PA-C 10/15/17 Referrals Leonel Hill M.D. (PCP) Patient Instructions My [facility]
--- NOTE | 2017-10-16 05:17 | DIAGNOSTIC IMAGING REPORT ---
PELVIC COMPLETE NON OB CLINICAL HISTORY: 37 years-old Female presenting with pelvic pain, recent spotting and pelvic pressure. TECHNIQUE: Real-time grayscale and color and spectral Doppler ultrasound imaging of the pelvis was performed using a transabdominal probe. COMPARISON: CT from 07/20/2017. FINDINGS: Uterus: Normal. Anteverted. The uterus measures 9.2 x 4.7 x 5.4 cm. Endometrial stripe measures 4 mm in thickness. Endometrium normal-appearing. Cervix normal. Right adnexa: Right ovary normal. Right ovary measures 3.1 x 2.5 x 1.5 cm. Normal color Doppler flow and arterial and venous waveforms within the ovarian parenchyma. Left adnexa: Left ovary normal. Left ovary measures 4.6 x 1.1 x 1.9 cm. Normal color Doppler flow and arterial and venous waveforms within the ovarian parenchyma. Other: Trace free fluid, likely physiologic. IMPRESSION: Normal sonographic examination of the uterus and ovaries. Electronically signed by: Rylan Teague M.D. 10/16/2017 5:16 AM Dictated Date/Time: 10/16/2017 5:14 AM
[2017-10-26] MEDS ORDERED: PRLSR20 PO (10:02)
== END 2017-10-16 00:16 | disposition home or self-care (01) ==
LOC: C.EDB 21:48
DX: R10.2 Pelvic and perineal pain (principal); M54.9 Dorsalgia, unspecified; E03.9 Hypothyroidism, unspecified; Z79.899 Other long term (current) drug therapy

== ENCOUNTER → 2017-10-18 | Outpatient (CLI) | payer OTHER ==
[~2017-10-18] MED LIST changes: +GADAVIST IV PRN; +IBUP-1050 PO; +KETO10TA PO; +MTR600X PO; +ONDA4TAB10 SL; +OXYC-57 PO; +PRLSR20 PO
--- NOTE | 2017-10-19 08:10 | DIAGNOSTIC IMAGING REPORT ---
MRI OF THE ABDOMEN COMBO; MRI OF THE PELVIS COMBO CLINICAL HISTORY: Weight gain. Pelvic pressure. COMPARISON STUDY: Abdominal CT dated 07/20/2017. Abdominal ultrasound dated 05/16/2017. TECHNIQUE: MRI of the abdomen and MRI of the pelvis are performed transverse T1 and T2-weighted sequences in the axial and coronal planes. Contrast enhanced sequences were acquired following the IV administration of 6.5 cc of Gadavist. Subtraction imaging was utilized. FINDINGS: Lower chest: No pleural effusion is identified. The heart is normal in size. Liver: The liver is normal in size, contour, and signal intensity. No intrahepatic biliary ductal dilatation is seen. The hepatic veins and portal veins are patent. Gallbladder: Unremarkable. Spleen: Normal in size and signal intensity. Pancreas: Unremarkable. Adrenal glands: The adrenal glands are densely calcified. No mass lesion is clearly seen. Kidneys: The kidneys are normal in size and without hydronephrosis. The kidneys enhance and excrete symmetrically. Bilateral nonobstructing renal calculi are suspected. Abdominal aorta: Normal in course and caliber. Bowel: There is no bowel obstruction. Moderate constipation is observed. A normal appendix is identified. Peritoneum: There is no abdominal ascites. There is a fat-containing umbilical hernia. Pelvic viscera: The bladder, uterus, and adnexa are normal in appearance. There are small ovarian follicles. No free fluid is seen in the cul-de-sac. Lymphadenopathy: None. Skeletal structures: Visualized skeletal structures times are normal marrow signal intensity. IMPRESSION: 1. No acute abnormality is identified involving the abdomen or pelvis. 2. Bilateral adrenal gland calcifications are similar to previous. 3. Question nonobstructing bilateral renal calculi. 4. Moderate constipation. Electronically signed by: Jerel Yost M.D. 10/18/2017 9:23 PM Dictated Date/Time: 10/18/2017 9:16 PM
== END | disposition home or self-care (01) ==
LOC: C.MRI 19:04
PROVIDERS: ATTEND Internal Medicine
DX: N94.89 Other specified conditions associated with female genital organs and menstrual cycle (principal); R63.5 Abnormal weight gain; R14.0 Abdominal distension (gaseous)

== ENCOUNTER → 2017-10-20 | Outpatient (CLI) | payer OTHER ==
[~2017-10-20] MED LIST changes: -GADAVIST IV PRN
[2017-10-20 15:22] LABS: BASO % 0.5 %; BASO ABS # 0.02 K/uL (0-0.2); EOS % 2.3 %; HEMATOCRIT 43.4 % (37-47); HEMOGLOBIN 15.2 g/dL (12.0-16.0); LYMPH % 36.9 %; LYMPH ABS # 1.63 K/uL (1.2-3.4); MEAN CELL VOLUME 89.3 fL (80-100); MEAN CORPUSCULAR HEMOGLOBIN 31.3 pg (25-34); MEAN PLATELET VOLUME 11.3 fL (7.4-10.4); MONO % 6.1 %; MONO ABS # 0.27 K/uL (0.11-0.59); NEUT % 54.2 %; PLATELET COUNT 208 K/uL (130-400); RED CELL DISTRIBUTION WIDTH CV 12.2 % (11.5-14.5); RED CELL DISTRIBUTION WIDTH SD 39.5 fL (36.4-46.3); WHITE BLOOD COUNT 4.42 K/uL (4.8-10.8)
[2017-10-20 15:33] LABS: BLOOD UREA NITROGEN 14 mg/dl (7-18); CALCIUM 8.8 mg/dl (8.5-10.1); CARBON DIOXIDE 27 mmol/L (21-32); CREATININE 0.87 mg/dl (0.60-1.20); GLUCOSE 90 mg/dl (70-99); POTASSIUM 3.8 mmol/L (3.5-5.1); SODIUM 139 mmol/L (136-145)
== END | disposition home or self-care (01) ==
LOC: C.LAB1850 13:49
PROVIDERS: ATTEND Obstetrics & Gynecology
DX: Z01.812 Encounter for preprocedural laboratory examination (principal)

== ENCOUNTER 2017-11-03 09:34 | Day surgery (SDC) | payer OTHER ==
[2017-10-26 10:03] VITALS: BMI 27.0
[~2017-11-03] VITALS: Ht 160 cm; Wt 70.5 kg
[~2017-11-03 09:34] MED LIST changes: -BCPILLS PO; +CEFAZOLIN 2000MG IV PUSH 10 ML IV SCH; -IBUP-1050 PO; -KETO10TA PO; +LACTATED RINGER'S 1000ML 1,000 ML IV SCH; -MTR600X PO; -OXYC-57 PO
[2017-11-03 09:55] VITALS: BP 117/69; PULSE 65; TEMP 36.6; O2SAT 100; Ht 160 cm; Wt 70.5 kg
[2017-11-03] MEDS ORDERED: DEXAMETHASONE SOD INJ 4 MG/ML VIAL ONE (10:12)
[2017-11-03] MEDS ORDERED: ONDANSETRON INJ 2 MG/ML 2 ML VIAL ONE (10:12)
[2017-11-03] MEDS ORDERED: PROPOFOL IV EMULSION 10 MG/ML 20 ML VIAL IV ONE (10:12)
[2017-11-03] MEDS ORDERED: LARYING-O-JET KIT (LTA) ONE (10:12)
[2017-11-03] MEDS ORDERED: FENTANYL CITRATE INJ 50 MCG/1 ML 2 ML VIAL ONE (10:12)
[2017-11-03] MEDS ORDERED: GLYCOPYRROLATE INJ 0.2 MG/ML VIAL ONE (10:12)
[2017-11-03] MEDS ORDERED: ROCURONIUM BROMIDE 10 MG/ML 5 ML VIAL IV ONE (10:12)
[2017-11-03] MEDS ORDERED: MIDAZOLAM HCL 1 MG/ML 2ML VIAL ONE (10:12)
[2017-11-03] MEDS ORDERED: LIDOCAINE HCL 2% 2 ML VIAL (20MG/ML) ONE (10:12)
[2017-11-03] MEDS ORDERED: NEOSTIGMINE METHYLSULFATE 5 MG/5 ML SYR ONE (10:12)
[2017-11-03] MEDS ORDERED: SCOPOLAMINE 1.5 MG TDSY TD ONE (10:59)
[2017-11-03] MEDS ORDERED: HYDROmorphone INJ 1 MG/ML SYR IV PRN (11:00)
[2017-11-03] MEDS ORDERED: FENTANYL CITRATE INJ 50 MCG/1 ML 2 ML VIAL IV PRN (11:00)
[2017-11-03] MEDS ORDERED: ONDANSETRON INJ 2 MG/ML 2 ML VIAL IV PRN ×2 (11:00→12:45)
[2017-11-03] MEDS ORDERED: ATROPINE SULFATE 0.1 MG/ML 5ML SYR IV PRN (11:00)
[2017-11-03] MEDS ORDERED: PROMETHAZINE HCL INJ 12.5 MG in SODIUM CHLORIDE 0.9% 50ML 50 ML IV PRN (11:00)
[2017-11-03] MEDS ORDERED: EpHEDrine SULFATE INJ 50 MG/ML AMP IV PRN (11:00)
--- NOTE | 2017-11-03 11:10 | History & Physical Bridge Note ---
H&P Re-Evaluation Bridge Note: I have examined the patient, reviewed the History & Physical and in the interval since the performance of the History & Physical I have noted the following changes of clinical significance: No changes noted Note procedure is laparoscopy, lysis of adhesions, possible resection of endometriosis
[2017-11-03] MEDS ORDERED: PROPOFOL IV EMULSION 10 MG/ML 100 ML VIAL IV ONE (11:13)
[2017-11-03] MEDS ORDERED: BUPIVACAINE 0.5 % 5 MG/1 ML MPF 30ML VIAL ONE (11:29)
[2017-11-03] MEDS ORDERED: KETOROLAC TROMETHAMINE 30 MG/ML VIAL ONE (12:03)
--- NOTE | 2017-11-03 12:41 | [facility] Post Operative Brief Note ---
Immediate Operative Summary Operative Date Nov 03, 2017. Pre-Operative Diagnosis Pelvic pain Post-Operative Diagnosis Pelvic pain Procedure(s) Performed Operative Laparoscopy with Lysis of adhesions Surgeon Dr. Linda Whitney MD [employer] Engineer Surgeon(s) None Estimated Blood Loss 5ml Findings Adhesions Specimens None per surgeon Drains None Anesthesia general Complication(s) None Disposition Recovery Room / PACU
--- NOTE | 2017-11-03 12:43 | Discharge Instructions ---
Discharge Instructions Date of Service Nov 03, 2017. Admission Reason for Admission: Abdominal Bloating, Pelvic Pressure Discharge Discharge Diagnosis / Problem: pelvic pain Discharge Goals Goal(s): Routine recovery after surgery Activity Recommendations Activity Limitations: per Instructions/Follow-up section . Instructions / Follow-Up Instructions / Follow-Up ACTIVITY RECOMMENDATIONS: * Rest the first 2-3 days. You should be back to your normal activity levels by day 3. * No heavy lifting for 2 weeks. * No intercourse, tampons or douching for 1-2 weeks. * You may shower the next day. * Do not drive anytime that you are taking narcotic pain medicines. RETURN TO SCHOOL/WORK: * May return to school or work after 2-3 days. DIET: Nausea may occur in the immediate post-operative period. If so, take clear liquids such as tea, bouillon, apple juice until all nausea has subsided, then resume usual diet. MEDICATIONS: Resume previous medications unless instructed otherwise by your surgeon. Ibuprofen 200mg 2-3 tablets every 4-6 hours as needed -- OR -- Aleve 2 tablets every 8-12 hours as needed for post-operative discomfort Medications are over the counter. Tylenol may be used if above medications are contraindicated or not preferred. Medication should be taken with food or milk. Do not take on an empty stomach. SPECIAL CARE INSTRUCTIONS: * Check temperature twice daily for one week. report any elevation over 101 degrees. * You may experience some vagina spotting and/or bleeding. This is normal for 1 -2 weeks and should not be heavier than a normal period. If it is unusual in amount, call your physician. * Post-operative discomfort may consist of a sore throat, a "bloated" feeling and pain in the shoulders. these are normal symptoms, which usually only last for 2-3 days. * Remove band-aids tomorrow and shower. There is no need to replace band-aids unless there is drainage or discomfort. FOLLOW UP VISIT: Call your doctor's office for a post-operative 2 week visit if not already scheduled. Current Hospital Diet Patient's current hospital diet: Discharge Diet Recommended Diet: Regular Diet Procedures Procedures Performed: Operative Laparoscopy with Lysis of adhesions Pending Studies Studies pending at discharge: no Medical Emergencies . Who to Call and When: Medical Emergencies: If at any time you feel your situation is an emergency, please call 911 immediately. . Non-Emergent Contact Non-Emergency issues call your: Type Mapper . . "Provider Documentation" section prepared by Oscar Whitney. . VTE Core Measure Inpt VTE Proph given/why not?: Marvel Llamas, SCD's
[2017-11-03] MEDS ORDERED: OXYC-57 PO (12:44)
[2017-11-03] MEDS ORDERED: MTR600X PO (12:44)
[2017-11-03] MEDS ORDERED: PROMETHAZINE HCL INJ 25 MG in SODIUM CHLORIDE 0.9% 50ML 50 ML IV PRN (12:45)
[2017-11-03] MEDS ORDERED: KETOROLAC TROMETHAMINE 30 MG/ML VIAL IV. PRN (12:45)
[2017-11-03] MEDS ORDERED: IBUPROFEN 600 MG TAB PO PRN (12:45)
[2017-11-03] MEDS ORDERED: OXYCODONE/ACETAMINOPHEN 5-325 TAB PO PRN ×2 (12:45)
[2017-11-03] MEDS ORDERED: SODIUM CHLORIDE 0.9% 1000ML 1,000 ML IV SCH (13:00)
[2017-11-03] MEDS ORDERED: SCOPOLAMINE 1.5 MG TDSY TD SCH (13:00)
--- NOTE | 2017-11-03 13:20 | OPERATIVE REPORT ---
DATE OF OPERATION: 11/03/2017 PREOPERATIVE DIAGNOSIS: Pelvic pain. POSTOPERATIVE DIAGNOSIS: Pelvic pain, intraabdominal adhesions. PROCEDURE: Operative laparoscopy with lysis of adhesions. SURGEON: Dr. Whitney. KINDERGARTNER: None. ESTIMATED BLOOD LOSS: 5 mL. FINDINGS: Abdominal adhesions. SPECIMENS: None. DRAINS: None. ANESTHETIC: General. COMPLICATIONS: None. DISPOSITION: Recovering. PROCEDURE: The patient was given a general anesthetic, prepped and draped in dorsal lithotomy position in [facility]. IV Ancef given preoperatively and time out performed. Ramirez catheter placed in her bladder. Allis clamp on the anterior lip of her cervix and then a cervical manipulating device acorn was then attached. Gloves changed and a subumbilical incision made with scalpel horizontally dissecting through open Shweta technique through the fascia, splitting the rectus muscles and entering the peritoneal cavity without difficulty. Blunt-tipped Shweta trocar then placed. Balloon inflated to allow port stabilization and 10 mm scope placed. FINDINGS: Upper abdomen did have some adhesions by the umbilical site. These were omental. There was also an adhesion on the patient's right abdominal side that was under tension and narrower in diameter as well as one closer to the pelvis on the left side. Two 8 mm ports were placed under direct visualization and I felt the most dense adhesions were by the umbilicus were making visualization somewhat difficult, so we used a 5 mm scope through one of the 8 mm ports and then using the Harmonic scalpel through the other 8 mm port I was able to carefully lyse away the adhesions and dissect these away from the umbilicus. I was then able to go back to the 10 mm scope through the umbilicus and easily lysed the adhesions both on the right and left sides. We did have deep Trendelenburg position, I visualized the pelvis, the uterus, ovaries, fallopian tubes, pelvic sidewalls and cul-de-sac were all negative for endometriosis or abnormalities. Bladder flap did have some mild adhesions related to prior section, but nothing dense. Full inspection of the pelvis was negative for endometriosis or other adhesive disease. On reinspection of the omental adhesions these were hemostatic. Camera was removed, ports removed under direct visualization, gas allowed to escape. Incisions injected with 0.5% Marcaine. Fascia was carefully closed with 2 [id number] sutures of 0 Vicryl in the umbilical incision. Subcutaneous fat irrigated. All instruments incisions injected with 0.5% Marcaine, 4-0 Monocryl closures subcuticular and Dermabond applied. Cervix instruments were removed and Ramirez catheter removed. Urine was clear at the end of procedure. Sponge and instrument counts correct. I attest to the content of the Intraoperative Record and any orders documented therein. Any exception s are noted below.
--- NOTE | 2017-11-03 13:23 | Anesthesiology Progress Note ---
Anesthesia Post Op Note Date & Time Nov 03, 2017 at 13:22 Vital Signs Pain Intensity: 2 Vital Signs Past 12 Hours Date Time Temp Pulse Resp B/P (MAP) Pulse Ox O2 Delivery O2 Flow Rate FiO2 11/03/17 13:21 116/72 11/03/17 13:16 60 13 97 11/03/17 13:16 36.5 60 13 11/03/17 13:15 118/73 11/03/17 13:11 67 17 11/03/17 13:11 68 17 98 11/03/17 13:10 119/66 11/03/17 13:06 86 20 11/03/17 13:06 89 20 99 11/03/17 13:05 110/71 11/03/17 13:01 66 12 11/03/17 13:01 66 12 99 11/03/17 13:00 112/62 11/03/17 12:56 73 11 11/03/17 12:56 73 11 99 11/03/17 12:55 115/69 11/03/17 12:46 36.7 90 14 110/76 99 Oxymask 7 11/03/17 09:55 36.6 65 18 117/69 (85) 100 Room Air Notes Mental Status: alert / awake / arousable, participated in evaluation Pt Amnestic to Procedure: Yes Nausea / Vomiting: adequately controlled Pain: adequately controlled Airway Patency, RR, SpO2: stable & adequate BP & HR: stable & adequate Hydration State: stable & adequate Anesthetic Complications: no major complications apparent
[2017-11-03 14:30] VITALS: BP 106/63; PULSE 60; TEMP 36.6; O2SAT 98
[2017-11-03] MEDS ORDERED: CHECK SCOPOLAMINE PATCH PLACEMENT SCH (16:00)
== END 2017-11-03 14:35 | disposition home or self-care (01) ==
LOC: C.ACU 09:34
PROVIDERS: ATTEND Obstetrics & Gynecology
DX: N99.4 Postprocedural pelvic peritoneal adhesions (principal); E03.9 Hypothyroidism, unspecified; Z79.899 Other long term (current) drug therapy; K21.9 Gastro-esophageal reflux disease without esophagitis